=== PATIENT | male | born 1990 | race Two or more races ===

== ENCOUNTER 2019-08-07 04:34 | Emergency (ER) | payer OTHER ==
[~2019-08-07] VITALS: Ht 165.1 cm; Wt 77.1 kg
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
--- NOTE | 2019-08-07 05:09 | NUR ---
pt to radiology on [facility].
--- NOTE | 2019-08-07 05:39 | NUR ---
PT IS MEDICALLY CLEARED FOR BOOKING. RELEASED UNDER THE CARE OF [employer]. PT IS IN STABLE CONDITON. PT AMBULATORY ON STEADY GAIT
[2019-08-07 05:43] VITALS: BP 129/82
== END 2019-08-07 05:43 ==
LOC: ER 04:39
DX: S00.83XA Contusion of other part of head, initial encounter (principal); V49.49XA Driver injured in collision with other motor vehicles in traffic accident, initial encounter; Y93.89 Activity, other specified; Y92.413 State road as the place of occurrence of the external cause; Y99.8 Other external cause status
CPT/HCPCS: 70450-TC; 70486-TC; 72125-TC